=== PATIENT | male | born 1965 | race Caucasian/White ===

== ENCOUNTER 2017-07-01 09:40 | Day surgery (SDC) | payer OTHER ==
[~2017-07-01 09:40] MED LIST: Metoclopramide 10 MG/2 ML SDV IV PRN; Sodium Chloride 0.9% 1,000 ML IV SCH
[2017-07-01] MEDS ORDERED: Propofol 200 MG/20 ML SDV ONE (13:05)
[2017-07-01 13:38] VITALS: BP 116/70
--- NOTE | 2017-07-01 18:43 | OR ---
DATE OF OPERATION: 07/01/2017 PREOPERATIVE DIAGNOSIS: Colon cancer screening. POSTOPERATIVE DIAGNOSIS: Colon cancer screening. PROCEDURE: Colonoscopy. ANESTHESIA: MAC. ESTIMATED BLOOD LOSS: None. COMPLICATIONS: None. INDICATIONS FOR THE PROCEDURE: The patient is a 52-year-old male here today for routine colon cancer screening. No family history of colon cancer. He denies any change in bowel habits. No blood in the stool. No recent weight loss. DESCRIPTION OF THE PROCEDURE: Informed consent was obtained from the patient. The patient was taken to the operating room and placed on table on left lateral decubitus position. Monitored anaesthesia care was applied. Digital rectal exam showed no masses, good rectal tone. Colonoscope was then advanced through the anus, directed towards the cecum. The cecum was reached and identified by appendiceal orifice and the ileocecal valve. Colonoscope was then slowly withdrawn. No masses. No polyps. No AV malformations. No areas of ischemia or inflammation were identified. The patient did have some moderate diverticulosis in the sigmoid colon. Retroflexion was performed in the rectum, and was unremarkable. Colonoscope was then removed. FINDINGS: Moderate diverticulosis in the sigmoid colon. RECOMMENDATIONS: Would recommend repeat colonoscopy in 10 years for colon cancer screening. VARINDER/LILIANA /[id number]
== END 2017-07-01 14:15 | disposition home or self-care (01) ==
LOC: LB.SDS 09:40
PROVIDERS: ATTEND Surgery
DX: Z12.11 Encounter for screening for malignant neoplasm of colon (principal); K57.30 Diverticulosis of large intestine without perforation or abscess without bleeding; Z79.899 Other long term (current) drug therapy
CPT/HCPCS: 45378; J2704; J7040